=== PATIENT | male | born 1965 | race Caucasian/White ===

== ENCOUNTER 2016-06-26 07:29 | Emergency (ER) | payer BC ==
--- NOTE | ~2016-06-26 | ER ---
PATIENT'S NAME: ASHLY KIMBALL [facility] AGE: 50 Y [address] ROOM: [place] [address] LOCATION: [facility] ADMIT DATE: 06/26/2016 ER/Outpatient Report DISCHARGE DATE: 06/26/2016 FAMILY PHYSICIAN: PHYSICIAN, NO ATTENDING PHYSICIAN: Leah Gomez A HISTORY OF PRESENT ILLNESS: The patient is a 50-year-old male who came into the ER with chief complaints of feeling lightheaded, clammy, and sweaty after standing up. He is here in [place] for a meeting for work and noticed that when he stood up, he had this sensation, and then it felt like he was going to "pass out." He is a diabetic and is on metformin and glyburide and was recently instructed to start insulin, but does not check his blood sugars like he should. He did not know what his blood sugar was this morning, but he says his wisdom tooth is hurting him on the left side, and so he has not been eating much since noon yesterday, so he felt that this might be related. He denies any chest pain or shortness of breath. He stated that he was nauseous during the incident, and he vomited a small amount, but then he tried to go back to his meeting, and his symptoms of feeling sweaty, clammy, and a little lightheaded recurred. When he arrived to the ER, he stated he felt much better and that his symptoms have resolved at this point. The patient denies any abdominal pain, current nausea or vomiting, or any swelling in his lower extremities. He does state that he judges his blood sugars based on his vision changes, so he denies any current vision changes. He does admit to a headache. He feels that this is related to his tooth pain. ALLERGIES: THE PATIENT DOES NOT HAVE ANY KNOWN MEDICAL ALLERGIES. PAST MEDICAL HISTORY: He had a history of DVT in his lower extremity in 2012. The patient reports a blood clot in his upper extremity as well and has been on warfarin since this time. The patient states that the DVT was provoked after a knee surgery. He also self-reports a diagnosis of cardiomyopathy in 2013, and then he had pancreatitis in 2013 as well. SOCIAL HISTORY: The patient smokes half a pack a day and has for 17 years. He is a recovering alcoholic, quit 2 years ago. He uses chewing tobacco occasionally. REVIEW OF SYSTEMS: A complete and comprehensive review of systems was performed and is negative except as noted in the HPI above. PHYSICAL EXAMINATION: PATIENT'S NAME: ASHLY KIMBALL [facility] AGE: 50 Y [address] ROOM: [place] [address] LOCATION: [facility] ADMIT DATE: 06/26/2016 ER/Outpatient Report DISCHARGE DATE: 06/26/2016 FAMILY PHYSICIAN: PHYSICIAN, NO ATTENDING PHYSICIAN: Leah Gomez GENERAL: The patient is in no acute distress. Alert and oriented x4. HEENT: Normal eye inspection. Eyes are PERRLA. Extraocular muscles intact. Mouth: Mucous membranes are moist. Does have dental caries bilaterally, both upper and lower molars. Ears are normal. NECK: No lymphadenopathy. No palpable thyroid. CARDIOVASCULAR: Regular rate and rhythm. No murmur, rubs, or gallops. CHEST: Clear to auscultation bilaterally. ABDOMEN: Normal upon inspection. Soft, nontender, and nondistended. Normal bowel sounds. EXTREMITIES: Nontender. He is able to move all extremities. No pedal edema. SKIN: Warm, dry, and intact without any signs of any rashes or wounds. DIAGNOSTIC DATA: EKG returned without any acute abnormalities and normal sinus rhythm. Chest x- ray was negative for any acute findings. LABORATORY DATA: CBC showed a platelet count of 129. Otherwise, was within normal limits. Comprehensive metabolic panel showed a glucose of 329 and a calcium of 8.3. Otherwise, normal. Cardiac enzymes were negative. Serum ketones were negative. IMPRESSION: Vasovagal response secondary to tooth pain. EMERGENCY DEPARTMENT COURSE: The patient received a liter bolus of IV fluids and remained stable. Vital signs remained stable, and the patient remained asymptomatic during his ED course. All results were explained to the patient. He was instructed to by seen by a dentist within the next day to address his tooth pain, and he was also instructed to check his blood sugars 4 times a day and to take his insulin and diabetic medications as prescribed by his primary care physician. He was also instructed to follow up with his primary care physician within the next 1 to 3 days. The patient was discharged home in stable condition. MALATHI ZAMAN STUDENT, RESIDENT FOR MD DONNA GARCIA/valentina /[id number] d: 06/26/16 1610 t: 07/01/16 0648, OUTPATIENT REPORT
--- NOTE | ~2016-06-26 | ER ---
PATIENT'S NAME: ASHLY KIMBALL [facility] AGE: 50 Y [address] ROOM: [place] [address] LOCATION: ED ADMIT DATE: 06/26/2016 ER/Outpatient Report DISCHARGE DATE: 06/26/2016 FAMILY PHYSICIAN: PHYSICIAN, NO ATTENDING PHYSICIAN: Leah Gomez Time of Arrival: 0729 hours. Time Seen: 0802 hours. IDENTIFICATION: 50-year-old male. CHIEF COMPLAINT: "Diabetic reaction." HISTORY OF PRESENT ILLNESS: The patient is a 50-year-old male from [place], who is here for a meeting. He was standing in a meeting, felt sweaty, clammy, and like he was going to pass out. He went to the bathroom and vomited a small amount, tried to go back to the meeting and the symptoms recurred, so he lied down on the floor. He currently is feeling much better with IV fluids per EMS pre-hospital. He has not eaten anything since yesterday noon due to a left upper and lower wisdom tooth that is bothering him. He also has diabetes. They just started him on insulin. He is continuing on his metformin. The insulin was prescribed at the pharmacy, but he has not yet started that. ALLERGIES: NO KNOWN DRUG ALLERGIES. CURRENT MEDICATIONS: 1. Glimepiride 4 mg 2 times daily. 2. Lisinopril 5 mg daily. 3. Warfarin 14 mg daily. 4. Metoprolol 50 mg b.i.d. 5. Metformin 1000 mg b.i.d. 6. Klor-Con 20 mEq daily. MEDICAL PROBLEMS: CHF; diabetes mellitus, changing over to insulin; hypertension; DVT in 2012, on chronic anticoagulation; cardiomyopathy in 2013; and pancreatitis in 2013. PRIOR SURGERIES: Multiple left knee surgeries. PATIENT'S NAME: ASHLY KIMBALL [facility] AGE: 50 Y [address] ROOM: [place] [address] LOCATION: ED ADMIT DATE: 06/26/2016 ER/Outpatient Report DISCHARGE DATE: 06/26/2016 FAMILY PHYSICIAN: PHYSICIAN, NO ATTENDING PHYSICIAN: Leah Gomez SOCIAL HISTORY: The patient lives in [place]. His primary care physician is Dr. Huerta in [place]. Tobacco use, half pack per day for 17 years. He also uses occasional chewing tobacco. Alcohol use, he is a recovering alcoholic. Drug use, denies. REVIEW OF SYSTEMS: All systems reviewed and negative other than what is noted in the HPI. PHYSICAL EXAMINATION: VITAL SIGNS: Height 6 feet 2 inches, weight 82.6 kg, blood pressure 112/66, pulse 61, respirations 18, temperature 96.2, and sats 96% on room air. GENERAL: A 50-year-old male in no acute distress. HEENT: Head: Normocephalic, atraumatic. Ears: TMs translucent, both ears. Nose: Mucosa pink. No lesions. Mouth: No lesions. Pharynx benign. No obvious abnormalities to his teeth, but he does have some tenderness along the upper and lower posterior molars. No swelling of his cheek and no redness. NECK: Supple. No lymphadenopathy. LUNGS: Clear to auscultation. HEART: Regular rate and rhythm. ABDOMEN: Soft, nondistended, and nontender. SKIN: [place], warm, and dry. No lesions or rashes noted. NEUROLOGIC: The patient is alert and oriented x4. Cranial nerves 2 through 12 grossly intact. Motor strength 5/5 throughout. Sensation is intact to light touch. EXTREMITIES: No lower extremity edema. No calf tenderness. LABORATORY DATA: EKG at 8:10, normal sinus rhythm at 58 beats per minute. No acute ST elevation or depression. Serum ketones are negative. Hemoglobin 15.5, hematocrit 44.4, platelets 129. No previous platelet count available for comparison. INR therapeutic at 2.06. Sodium 135, potassium 4.3, chloride 102, CO2 of 25, BUN 19, creatinine 0.8, blood sugar 329. Liver enzymes normal. Magnesium 1.6, CPK 58, CK-MB less than 0.5, troponin I less than 0.040. One-view chest x-ray, no acute process, pending Radiology over-read. EMERGENCY DEPARTMENT COURSE: The patient received 1 L of IV fluids and was feeling much better. IMPRESSION: 1. Near syncopal episode, probably secondary to dehydration. The patient feeling better with 1 L of normal saline. 2. Dental pain. PATIENT'S NAME: ASHLY KIMBALL [facility] AGE: 50 Y [address] ROOM: [place] [address] LOCATION: [facility] ADMIT DATE: 06/26/2016 ER/Outpatient Report DISCHARGE DATE: 06/26/2016 FAMILY PHYSICIAN: PHYSICIAN, NO ATTENDING PHYSICIAN: Leah Gomez 3. Diabetes mellitus, insulin requiring. 4. Hyperglycemia. 5. Deep venous thrombosis, on chronic anticoagulation which is therapeutic. PLAN: 1 L of IV fluids given here. Soft diet. Start insulin as directed. Check blood sugars four times a day and follow up with the dentist as scheduled today. Follow up sooner if any problems or concerns. LEAH GOMEZ MD CAR/modl /[id number] d: 06/26/162120 t: 06/27/16 0800, OUTPATIENT REPORT
[2016-06-26 08:26] LABS: INR - (THERAPEUTIC) 2.06 (0.92-1.07); PROTIME 21.8 SECONDS (9.8-11.4); PTT 31 SECONDS (25-32)
[2016-06-26 08:28] LABS: BASOPHIL # 0.1 K/uL (0.0-0.2); BASOPHIL % 0.7 %; EOSINOPHIL # 0.3 K/uL (0.0-0.5); EOSINOPHIL % 3.6 %; HEMATOCRIT 44.4 % (37.0-53.0); HEMOGLOBIN 15.5 g/dL (12.0-17.0); IMMATURE GRANULOCYTE # 0.1 K/uL (0.0-0.3); IMMATURE GRANULOCYTE % 1.6 %; LYMPHOCYTE # 1.4 K/uL (0.8-4.0); LYMPHOCYTE % 18.1 %; MCH 28.5 pg (27.0-34.0); MCHC 34.9 gm/dL (32.0-36.5); MCV 81.6 fl (83.0-98.0); MONOCYTE # 0.6 K/uL (0.0-1.0); MONOCYTE % 8.5 %; MPV 11.3 fl (9.4-12.4); NEUTROPHIL % 67.5 %; NRBC % 0 /100WBC (0-0.00); PLATELET COUNT 129 K/uL (150-450); RBC 5.44 M/uL (4.00-6.00); RDW-CV 12.3 % (11.9-14.6); WBC 7.4 K/uL (4.0-11.0)
[2016-06-26 08:37] LABS: ALBUMIN 3.6 gm/dL (3.5-5.0); ALK PHOS 95 IU/L (33-138); ALT 23 IU/L (12-78); ANION GAP 12.3 (10.0-19.0); AST 12 IU/L (10-40); BLOOD UREA NITROGEN 19 mg/dL (6-24); CALCIUM 8.3 mg/dL (8.5-10.5); CHLORIDE 102 mMol/L (96-110); CO2 25 mMol/L (22-32); CPK 58 IU/L (35-332); CREATININE 0.8 mg/dL (0.6-1.3); ESTIMATED GFR (MDRD EQUATION) > 60; MAGNESIUM 1.6 mg/dL (1.8-2.6); POTASSIUM 4.3 mMol/L (3.7-5.1); SODIUM 135 mMol/L (135-145); TOTAL BILIRUBIN 0.5 mg/dL (0.0-1.5); TOTAL PROTEIN 6.7 g/dL (6.0-8.4)
== END 2016-06-26 09:45 | disposition disaster alternative care site (69) ==
LOC: GMED 07:29
PROVIDERS: Family Medicine
DX: R55 Syncope and collapse (principal); K08.89 Other specified disorders of teeth and supporting structures; F17.210 Nicotine dependence, cigarettes, uncomplicated; E11.65 Type 2 diabetes mellitus with hyperglycemia; I11.0 Hypertensive heart disease with heart failure; I50.9 Heart failure, unspecified; Z79.4 Long term (current) use of insulin; Z79.84 Long term (current) use of oral hypoglycemic drugs; Z79.01 Long term (current) use of anticoagulants; Z79.899 Other long term (current) drug therapy
CPT/HCPCS: J7030

== ENCOUNTER → 2016-06-26 | Outpatient (CLI) | payer BC | END | disposition disaster alternative care site (69) | LOC: GAMB 07:09 | DX: E11.65 Type 2 diabetes mellitus with hyperglycemia (principal); R42 Dizziness and giddiness; Z79.899 Other long term (current) drug therapy; Z91.048 Other nonmedicinal substance allergy status ==